=== PATIENT | female | born 1955 | race Caucasian/White ===

== ENCOUNTER 2017-04-10 18:49 | Observation (INO) | payer BC ==
[2017-04-10] MEDS ORDERED: MORPHINE SULFATE 5 MG/ML PFS IVP ONE (18:50)
[2017-04-10] MEDS ORDERED: ONDANSETRON HCL IV 4 MG/2 ML VIAL IVP ONE ×2 (18:50→23:08)
[2017-04-10] MEDS ORDERED: SODIUM CHLORIDE 0.9% 500 ML IV ONE (18:50)
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
[2017-04-10] MEDS ORDERED: FENTANYL PF 100MCG/2ML VIAL IVP ONE ×2 (20:08→20:41)
[2017-04-10] MEDS ORDERED: MIDAZOLAM HCL 2MG/2ML VIAL IV ONE ×4 (20:08→20:45)
[2017-04-10 20:39] LABS: BASO % 0.5 % (0-6); EOS % 1.2 % (0-6); GRAN % 60.3 % (47-80); HEMATOCRIT 39.3 % (35.0-47.0); HEMOGLOBIN 13.5 gm/dl (11.6-16.0); LYMPH % 28.3 % (16-45); MEAN CELL VOLUME 89.1 fl (81-97); MEAN CORPUSCULAR HEMOGLOBIN 30.6 pg (27-33); MEAN CORPUSCULAR HGB CONC 34.4 g/dl (32-36); MEAN PLATELET VOLUME 8.9 fl (7.4-10.4); MONO % 9.7 % (0-9); PLATELET COUNT 381 K/uL (130-400); RED BLOOD COUNT 4.41 M/uL (3.80-5.40); RED CELL DISTRIBUTION WIDTH 13.1 % (11.5-14.5); WHITE BLOOD COUNT W/O DIFF 6.5 K/uL (4.2-12.2)
[2017-04-10 20:46] LABS: BLOOD UREA NITROGEN 19 mg/dL (6-20); CREATININE 0.6 mg/dL (0.5-0.9); EST GLOMERULAR FILTRATION RATE > 60 mL/min
[2017-04-10 20:49] LABS: GLUCOSE,RANDOM 152 mg/dL (74-109)
[2017-04-10 20:50] LABS: INR 0.95; PARTIAL THROMBOPLASTIN TIME 23.9 SECONDS (24.5-39.1); PROTHROMBIN TIME (PATIENT) 10.3 SECONDS (9.5-12.1)
[2017-04-10] MEDS ORDERED: 0.9 % SODIUM CHLORIDE 1000ML 1,000 ML IV PRN (23:08)
[2017-04-10] MEDS: MORPHINE SULFATE 5 MG/ML PFS IVP PRN (23:40)
[2017-04-11] MEDS ORDERED: DIPHENHYDRAMINE HCL IV 50 MG/ML VIAL IVP ONE (02:03)
[2017-04-11] MEDS ORDERED: MORPHINE SULFATE 5 MG/ML PFS IVP ONE (02:13)
[2017-04-11] MEDS ORDERED: DIPHENHYDRAMINE HCL IV 50 MG/ML VIAL IVP PRN (02:15)
[2017-04-11] MEDS: MORPHINE SULFATE 5 MG/ML PFS IVP PRN (06:09)
--- NOTE | 2017-04-11 07:22 | RADIOLOGY REPORT ---
EXAM: LEFT WRIST HISTORY: INJURY, PAIN AND DEFORMITY OF THE LEFT WRIST. TECHNIQUE: Three views of the left wrist were obtained. Comparison: None. FINDINGS: There is a comminuted fracture of the distal left radius. The fracture extends into the radial carpal joint space. There is some impaction at the fracture site and there is moderate posterior angulation and displacement. No definite fracture of the distal ulna seen. Mild arthritic changes in the first carpal metacarpal joint. IMPRESSION: 1. THERE IS A COMMINUTED FRACTURE WITH MODERATE ANGULATION AND DISPLACEMENT OF THE DISTAL LEFT RADIUS WITH INTRAARTICULAR EXTENSION. 2. SEE ABOVE FOR FULL DISCUSSION. JOB NUMBER: [id number] MTDD
--- NOTE | 2017-04-11 07:25 | RADIOLOGY REPORT ---
EXAM: LEFT ELBOW HISTORY: INJURY, PAIN. TECHNIQUE: Three views of the left elbow were obtained. Comparison: None. FINDINGS: No bone or joint abnormality identified. No fracture is seen. The joint spaces are well maintained. IMPRESSION: UNREMARKABLE LEFT ELBOW. IF THERE IS CONTINUED CLINICAL CONCERN FOR FRACTURE FOLLOW-UP FILMS, CT, AND/OR MRI COULD BE OBTAINED. JOB NUMBER: [id number] MTDD
--- NOTE | 2017-04-11 07:28 | RADIOLOGY REPORT ---
EXAM: LEFT WRIST HISTORY: POST REDUCTION. TECHNIQUE: Two views of the left wrist were obtained. Comparison: 04/10/17. Encounter: Initial. FINDINGS: A comminuted fracture of the distal left radius is again identified. Alignment and position are improved since the previous study with mild posterior displacement and angulation now present. There is a fracture of the ulnar styloid. Fine bone detail is somewhat obscured by an overlying cast. IMPRESSION: 1. COMMINUTED FRACTURE OF THE DISTAL LEFT RADIUS WITH IMPROVED ALIGNMENT AND POSITION SINCE THE PREVIOUS STUDY. 2. FRACTURE OF THE ULNAR STYLOID. [facility]: [id number] [facility]
[2017-04-11] MEDS ORDERED: RINGERS SOLUTION,LACTATED 1,000 ML IV PRN (08:40)
[2017-04-11] MEDS ORDERED: ONDANSETRON HCL IV 4 MG/2 ML VIAL IVP ONE (09:28)
[2017-04-11] MEDS ORDERED: DEXAMETHASONE 4 MG/ML 1ML VIAL IVP ONE (09:28)
[2017-04-11] MEDS ORDERED: ACETAMINOPHEN 1,000 MG/100 ML BTL IV ONE (09:28)
[2017-04-11] MEDS ORDERED: PROPOFOL 10 MG/ML VIAL IV ONE (09:28)
[2017-04-11] MEDS ORDERED: SEVOFLURANE 250 ML INH ONE (09:28)
[2017-04-11] MEDS ORDERED: LIDOCAINE 2% MDV (20MG/ML) 20ML VIAL IV ONE (09:28)
[2017-04-11] MEDS ORDERED: KETOROLAC 30 MG/ML VIAL IVP ONE (09:28)
[2017-04-11] MEDS ORDERED: MIDAZOLAM HCL 2MG/2ML VIAL IV ONE (09:28)
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
--- NOTE | 2017-04-11 12:11 | Medical Records Consult ---
DATE OF CONSULTATION: 04/11/2017 CONSULTING PHYSICIAN: Mitchell Hoyos DO REASON FOR CONSULTATION: This 61-year-old female was seen in consultation for evaluation of her left wrist. She gives a history of sustaining an injury on 04/10/2017 at home when she was walking out the door with her boots on to let her dog out, slipped and fell, landing on her outstretched left wrist. She had severe pain and was taken to the Emergency Room by ambulance at [facility]. X-rays were obtained by the Emergency Room physician and demonstrated severe comminution of the distal radius fracture with displacement and angulation. Subsequently, a closed reduction was accomplished by Nick Zambrano MD and she was placed in a splint and admitted to the hospital for observation and the Orthopedic consultation requested. The physical examination today demonstrates an intact neurovascular status. She is not having problems with her elbow or shoulder, but only pain in the left wrist. I have reviewed the x-rays, which demonstrate a severely comminuted fracture of the distal radius. Even after the closed reduction, she still has radial shortening and mild dorsal displacement of the distal fracture fragment. There also appears to be a minimally displaced fracture of the ulnar styloid. DIAGNOSTIC IMPRESSION: Fracture, left distal radius and ulna. RECOMMENDATIONS: I have discussed the findings with the patient, and I have recommended closed reduction percutaneous pinning. I have discussed this surgery in detail along with potential risks and complications, expected postoperative course, and final outcome. She understands and wished to proceed with the surgery as described above, which will be performed on 04/11/2017. KEANU
[2017-04-11] MEDS ORDERED: HYDROCODONE/APAP 5/325MG TABLET PO PRN (18:31)
[2017-04-11] MEDS: HYDROCODONE/APAP 5/325MG TABLET PO PRN (18:42)
[2017-04-11] MEDS: GUAIFENESIN 600 MG TABCR PO SCH (21:11)
[2017-04-11] MEDS ORDERED: ONDANSETRON HCL IV 4 MG/2 ML VIAL IVP PRN (21:14)
[2017-04-11] MEDS ORDERED: ALPRAZOLAM 0.25 MG TABLET PO PRN (21:57)
--- NOTE | 2017-04-12 07:17 | RADIOLOGY REPORT ---
EXAM: CHEST HISTORY: COUGH, WHEEZING. TECHNIQUE: Two views of the chest were obtained. Comparison: None. FINDINGS: The heart is not enlarged and there is no mediastinal mass. Patchy areas of opacity are seen in the right mid and lower lung. Possible infiltrate in the left lung base. The lungs are otherwise clear. No vascular congestion. IMPRESSION: PATCHY AREAS OF OPACITY IN THE LUNGS BILATERALLY. BILATERAL INFILTRATES CANNOT BE EXCLUDED. CLINICAL CORRELATION AND FOLLOW-UP RECOMMENDED. IF THESE DO NOT RESOLVE CHEST CT IS SUGGESTED TO EXCLUDE LUNG MASS OR NODULE. J[facility]BER: [id number] [facility]
--- NOTE | 2017-04-12 07:40 | Discharge Summary ---
Providers Discharge Summary Date: 04/12/17 Date of admission: 04/11/17 09:27 Attending physician: Griffin Lopez Primary care physician: FLORENTIN AGUSTIN M.D. Physical Exam - Vital Signs Vital Signs: Vital Signs - Last 24 Hrs Temp Pulse Pulse Resp BP Pulse Ox 04/11/17 21:56 98.2 F 87 18 138/81 95 04/11/17 21:00 87 18 04/11/17 12:15 98.3 F 89 16 142/77 99 04/11/17 12:00 98.3 F 95 H 16 128/78 98 04/11/17 11:45 98.4 F 84 16 147/94 95 - General General Appearance: Alert, Oriented x3, Cooperative, No acute distress Limitations: No limitations - Head Head exam: Atraumatic, Normocephalic, Normal inspection - Eye Eye exam: Normal appearance, PERRL. negative: Conjunctival injection, Scleral icterus - ENT ENT exam: Normal exam, Mucous membranes moist Ear exam: Normal external inspection Nasal Exam: Normal inspection Mouth exam: Normal external inspection - Neck Neck exam: Normal inspection, Full ROM. negative: Tenderness - Respiratory Respiratory exam: Normal lung sounds bilaterally. negative: Respiratory distress, Rhonchi, Stridor, Wheezes - Cardiovascular Cardiovascular Exam: Regular rate, Normal rhythm, Normal heart sounds - GI/Abdominal GI/Abdominal exam: Soft. negative: Tenderness - Rectal Rectal exam: Deferred - exam: Deferred - Extremities Extremities exam: Joint swelling, Normal capillary refill, Tenderness. negative : Normal inspection, Full ROM - Back Back exam: Denies: CVA tenderness (R), CVA tenderness (L) - Neurological Neurological exam: Alert, Oriented X3. negative: Motor sensory deficit - Psychiatric Psychiatric exam: Normal affect, Normal mood. negative: Agitated, Anxious - Skin Skin exam: Dry, Intact, Normal color, Warm Hospitalization - Hospitalization Admission Diagnosis: comminuted wrist fracture - Problem List/Discharge Diagnosis (1) Nausea & vomiting Status: Acute Base Code: R11.2 - NAUSEA WITH VOMITING, UNSPECIFIED Comment: - post-op N/V, cont IVF @ 125mL/hr - diet as tolerated, Zofran 4mg q4H PRN (2) Wrist fracture, closed Status: Acute Discharge Diagnosis: Encounter type: initial encounter Laterality: left Qualified Code(s): S62.102A - Fracture of unspecified carpal bone, left wrist, initial encounter for closed fracture Base Code: S62.109A - FRACTURE OF UNSP CARPAL BONE, UNSP WRIST, INIT FOR CLOS FX Comment: - communited fracture of the distal left radius s/p fall . - pt had closed reduction and pinning this morning - cont pain control with morphine 5mg Q4H PRN - cleared for discharge as per surgery (3) Productive cough Status: Acute Base Code: R05 - COUGH Comment: - chest xray 2 view ordered - gaufenesin Q12H (4) Full code status Status: Acute Base Code: Z78.9 - OTHER SPECIFIED HEALTH STATUS - Disposition D/C home in the morning - Hospitalization Course Disposition: Home, Self-Care Hospital Course: Mrs. Quiroz is a 61 y/o female who comes in after having a fall while while entering her home yesterday evening. She says that she slipped and fell forward using her left hand and elbow to break her fall. She did not sustain any other injury and xray on admission showed a comminuted fracture of the distal left radius. She was admitted for surgical procedure by Dr. Hoyos this morning. She has no other medical history or complaint at this time. The patient underwent procedure for internal fixation and pinning of the distal radius. Pos-operatively the patient complained of minimal pain but was very drowsy and had several episodes of vomiting. She was not able to take in any food for several hours and was also concerned about going home on her own as her was out of town and she has no support. The patient was kept overnight and her nausea and vomiting resolved. She was discharged with follow up with Dr. Hoyos in 2 weeks. Procedures: Imaging and X-Rays 04/11/17 10:30 FLUOROSCOPY CHARGE 1 HR [RAD] Routine 04/11/17 16:11 CHEST 2 VIEWS [RAD] Stat Condition at Discharge: (1) Good Discharge Medications - Discharge Medications Prescriptions: Hydrocodone/Acetaminophen [Hudson 5-325 Tablet] 1 each PO Q6HR PRN #10 tablet PRN Reason: Pain - General Home Medications: Ambulatory Orders Bupropion HCl [Bupropion HCl Sr] 150 mg PO DAILY 04/10/17 [Last Taken Unknown] Clonazepam 0.5 mg PO DAILY 04/10/17 [Last Taken Unknown] Lamotrigine 1 tab PO DAILY 04/10/17 [Last Taken Unknown] Quetiapine Fumarate [Seroquel] 25 mg PO QHS 04/10/17 [Last Taken Unknown] Hydrocodone/Acetaminophen [Hudson 5-325 Tablet] 1 each PO Q6HR PRN #10 tablet [Last Taken Unknown] Discharge Plan - Discharge Instructions Instructions: Hydrocodone/Acetaminophen (By mouth), Wrist Fracture in Adults ( [place]) Additional Instructions: Keep arm elevated above heart level Can apply ice paks for comfort Hudson for pain 1 or 2 every 6 hours. Call [phone] to schedule follow up with Dr Hoyos in one week Wiggle fingers frequently Contact the doctor or return to the ED if fingers become swollen and painful, fever 101. Quality Measures - Quality Measures Quality Measures: Documentation of Current Medications in Medical Record, Screening for High Blood Pressure and F/U Documented - Current Medications Quality Measure: Measure #130: Documentation of Current Medications Documentation of Current Medications: <Current Medications Documented/Reviewed> [G8427] - Blood Pressure Screening Quality Measure: Screening for High Blood Pressure and Follow-Up Documented Does Patient Have Any of the Following: No Blood Pressure Classification: Hypertensive Reading Systolic Measurement: 155 Diastolic Measurement: 96 Screening for High Blood Pressure: < Normal BP, F/U Not Required > [G8783] - Elder Abuse Suspicion Index EASI Reference Information: Savannah DANIEL, Sherin C, Isaias D, Rachael Mullen.Development and validation of a tool to assist physicians identification of elder abuse: The Elder Abuse Suspicion Index (EASI ). Journal of Elder Abuse and Neglect, 2008; 20 (3): 276-300.
[2017-04-12] MEDS: HYDROCODONE/APAP 5/325MG TABLET PO PRN (08:43)
[2017-04-12] MEDS: GUAIFENESIN 600 MG TABCR PO SCH (10:01)
--- NOTE | 2017-04-12 12:20 | Operative Note ---
DATE OF SURGERY: 04/11/2017 Surgeon: Mitchell Hoyos DO PREOPERATIVE DIAGNOSIS: Comminuted displaced fracture of the left distal radius and ulna. POSTOPERATIVE DIAGNOSIS: Comminuted displaced fracture of the left distal radius and ulna. OPERATION: Closed reduction and percutaneous pinning of left distal radius. DESCRIPTION OF PROCEDURE: This 61-year-old female was taken to the operating room, placed in the supine position on the operating room table. A general anesthetic was administered and the left upper extremity was elevated. It was prepped with Hibiclens and draped in the usual sterile fashion. Image intensifier was brought into the operative field. Closed reduction of the fracture was accomplished without difficulty. Very near anatomic reduction was accomplished. Subsequently, we then advanced two 0.054 K wires across the radius from the radial styloid obliquely across the fracture site to the medial cortex of the distal radius. This was done under the guidance of the image intensifier. Once the pins had been inserted, the x-ray was taken to confirm satisfactory position and alignment of the pins as well as reduction of the fracture, and it was felt to be satisfactory. Subsequently, the pins were bent over and but off and the AP plaster mold was applied and the patient was taken to the recovery room in satisfactory condition. GROSS PATHOLOGY: This patient demonstrated a comminuted fracture of the distal radius and ulna. The fracture was reduced and pinned in the manner described above achieving near anatomic alignment. CC: MD KEANU Cordova
== END 2017-04-12 11:20 | disposition home or self-care (01) ==
LOC: ER 18:49 → MEDSURG 23:00 → UNDOADMOB 23:00 → MEDSURG 04-11 09:27
PROVIDERS: ADMIT Internal Medicine; ATTEND Internal Medicine
DX: S52.602A Unspecified fracture of lower end of left ulna, initial encounter for closed fracture (principal); Z87.891 Personal history of nicotine dependence; F41.8 Other specified anxiety disorders; W18.39XA Other fall on same level, initial encounter; Y93.01 Activity, walking, marching and hiking; Y92.007 Garden or yard of unspecified non-institutional (private) residence as the place of occurrence of the external cause
CPT/HCPCS: 25650 ×2; 25606; 01820; 93041; 99285 ×2; 96376; 96374; 96375; 99152; 85025; 85730; 85610; 80048; 71020; 73080; 76000; 73100; 73110; G0378 ×2; J1885; J2405 ×2; J3010; J2270 ×2; 99217; 99220; J1200; J7120